=== PATIENT | female | born 1960 | race Caucasian/White ===

== ENCOUNTER 2018-07-12 05:37 | Day surgery (SDC) | payer OTHER ==
[~2018-07-12 05:37] MED LIST: Buffered Lidocaine 1% SYRIN* 1 ML/SYRINGE INTRADERM ONE; Lactated Ringers 1000 ML Bag* 1,000 ML IV SCH
[2018-07-12] MEDS ORDERED: Clindamycin 900 MG/D5W BAG(*) 900 MG/50 ML BAG IVPB ONE (06:31)
[2018-07-12] MEDS ORDERED: Buffered Lidocaine 1% SYRIN* 1 ML/SYRINGE INTRADERM ONE (06:31)
[2018-07-12] MEDS ORDERED: Bupivacaine 0.5%* 50 ML VIAL ONE (06:45)
[2018-07-12] MEDS ORDERED: Scopolamine 1.5 mg* PATCH ONE (07:25)
[2018-07-12] MEDS ORDERED: Midazolam* 1 MG/ML 2 ML VIAL (2 MG) ONE (07:28)
[2018-07-12] MEDS ORDERED: fentaNYL* 50 MCG/ML 2 ML VIAL (100 MCG VIAL) ONE (07:28)
[2018-07-12] MEDS ORDERED: Propofol* 10 MG/ML 20 ML BTL ONE (07:45)
[2018-07-12] MEDS ORDERED: Lidocaine 2% PF * 5 ML VIAL ONE (07:45)
[2018-07-12] MEDS ORDERED: Dexamethasone IV* 4 MG/ML 1 ML (4 MG) ONE (07:45)
[2018-07-12] MEDS ORDERED: Ondansetron INJ* 2 MG/ML VIAL ONE (07:45)
[2018-07-12] MEDS ORDERED: PROCHLORPERAZINE INJ 5 MG/ML 2 ML VIAL IV PRN (08:01)
[2018-07-12] MEDS ORDERED: Acetaminophen TAB* 325 MG PO PRN (08:01)
[2018-07-12] MEDS ORDERED: Metoclopramide IV* 5 MG/ML 2 ML VIAL IV PRN (08:01)
[2018-07-12] MEDS ORDERED: HYDROcodone/ACETAMIN 5-325 MG* 1 TAB PO PRN (08:01)
[2018-07-12] MEDS ORDERED: Naloxone* 0.4 MG/ML 1 ML VIAL IV PRN (08:01)
[2018-07-12] MEDS ORDERED: Ketorolac INJ* 30 MG/ML 1 ML VIAL ONE (08:04)
[2018-07-12] MEDS ORDERED: EPHEDrine (Pressors)* 50 MG/ML VIAL ONE (08:08)
--- NOTE | 2018-07-12 08:10 | OP ---
Operative Report - Blank - Operative Report Date of Operation: 07/12/18 Note: PATIENT: Kandis Wang DATE OF : 1960 DATE OF SURGERY: 07/12/2018 SURGEON: Dheeraj Kamara MD TARIFF EXPERT: SEAN Brown, whos assistance was necessary for positioning, retraction, help with instrumentation, and closure. ANESTHESIOLOGIST: Dr. Keli Peterson PREOPERATIVE DIAGNOSIS: Right dorsal talonavicular osteophytes POSTOPERATIVE DIAGNOSIS: Right dorsal talonavicular osteophytes OPERATION: Saucerization of the right talus and navicular bones with excision of dorsal talonavicular osteophytes. ANESTHESIA: General IMPLANTS: none TOURNIQUET TIME: Less than 1 hour with a well-padded thigh tourniquet at 250mmHg SPECIMENS: none ESTIMATED BLOOD LOSS: minimal COMPLICATIONS: none STATUS: Stable from the operating room to the recovery room and then home INDICATIONS FOR PROCEDURE: Kandis has had persistent pain from the above problem. Both operative and non- operative treatment alternatives were reviewed. Further, the nature and risks of surgery were reviewed in careful detail. Our discussions regarding the risks of surgery included, but were not limited to, infection, wound problems, nerve injury, neuroma, RSD, persistent symptoms, blood clot, need for further surgery , failure of the surgery, and even the remote chance of catastrophic complication, including loss of limb. DESCRIPTION OF PROCEDURE: The patient was seen in the preoperative holding unit and informed written consent was obtained. The appropriate extremity was marked. The patient was then brought to the operating room and carefully positioned on the operating room table. Anesthesia was induced. All bony prominences were padded with great care. A well-padded thigh tourniquet was placed. A chlorhexidine based pre- scrub was performed followed by a chloraprep prep and drape in standard sterile fashion. A surgical safety pause was then conducted in which we confirmed the appropriate patient, extremity, planned procedure, availability of equipment, indication and administration of prophylactic antibiotics, and DVT prophylaxis in the form of a compression boot on the non-surgical extremity. I began with an esmarch exsanguination and inflated the tourniquet. I made an approximately 3cm longitudinal incision medial to the tibialis anterior tendon centered at the talonavicular joint. I sharply dissected down to the layer of the joint capsule and periosteum. I raised a dorsal flap subperiosteally. This exposed the dorsal osteophytes on the navicular and talus bones at the talonavicular joint. I used a small osteotome and Rongeur to then excise the dorsal osteophytes off the navicular. I used a small rasp to smooth this out. I then used a small osteotome and Rongeur to remove the dorsal osteophytes off the talus. I again used a rasp to smooth this out. The wound was copiously irrigated and meticulously closed in layers utilizing 0 Vicryl for the capsular layer, 3-0 Monocryl and 3-0 Nylon. A sterile dressing was then applied. The patient was then awakened from anesthesia and transferred to the recovery room in stable condition. There were no complications. All needle and sponge counts were correct at the end of the case. ATTESTATION: I attest I was present and scrubbed and performed the critical portions of the procedure myself. POSTOPERATIVE PLAN: She will follow up in 2 weeks for likely suture removal.
[2018-07-12] MEDS ORDERED: Acetaminophen TAB* 325 MG ONE (08:59)
[2018-07-12 10:23] VITALS: BP 128/64
== END 2018-07-12 10:26 | disposition home or self-care (01) ==
LOC: OR 05:37
PROVIDERS: ATTEND Orthopaedic Surgery
DX: M25.774 Osteophyte, right foot (principal); I10 Essential (primary) hypertension; E78.5 Hyperlipidemia, unspecified; K21.9 Gastro-esophageal reflux disease without esophagitis; D45 Polycythemia vera; E04.1 Nontoxic single thyroid nodule
CPT/HCPCS: A9270-GY; J1100; J1885; J2250; J2405; J2704; J3010